=== PATIENT | female | born 1940 | race Caucasian/White ===

== ENCOUNTER → 2017-12-31 | Outpatient (CLI) | payer MEDICARE, OTHER ==
[~2017-12-31] MED LIST: ACTEMRA80 MG/4 ML IV; ALENDRONATE SOD35 MG PO; ATORVASTATIN CA20 MG PO; CALCIUM 1200 MG; CALCIUM PO; FOLIC ACID 400 MG; FOLIC ACID1 MG PO; LEVOTHYROXINE50 MCG PO; LEXAPRO10 MG PO; LORATAB; METHOTREXATE S2.5 MG PO; NITROFURANTOIN100 M1 PO; OMEPRAZOLE40 MG PO; OXYBUTYNIN CHLOR5 MG PO; PANTOPRAZOLE SO40 MG PO; SANCTURA XR60 MG PO; SERTRALINE PO; TEMAZEPAM30 MG PO; Z.0.CITALOPRAM HBR20 PO; Z.0.ENABLEX7.5 MG PO; Z.0.GEMFIBROZIL600 M PO; Z.0.NEXIUM40 MG PO; Z.0.OMEPRAZOLE20 M1 PO; Z.0.TEMAZEPAM30 MG PO; ZOLPIDEM TARTRA10 MG PO; [UNRECOGNIZED DRUG - OTHER]; [UNRECOGNIZED DRUG - OTHER] PO
--- NOTE | 2017-12-31 11:49 | Diagnostic Imaging Report ---
PROCEDURE: Frontal and lateral views of the chest. COMPARISON: None. INDICATIONS: COUGH FINDINGS: Lines/tubes: Cervical spine fixation hardware is noted. Lungs: The lungs are well inflated and clear. There is no evidence of pneumonia or pulmonary edema. Pleura: There is no pleural effusion or pneumothorax. Heart and mediastinum: The cardiomediastinal silhouette is unchanged. Bones: No acute bony abnormality. IMPRESSION: Clear lungs. No evidence of pneumonia. Dictated by: POLO GARCIA M.D. on 12/31/2017 at 11:54 Electronically approved by: POLO GARCIA M.D. on 12/31/2017 at 11:54
== END ==
LOC: MAMMO 10:33
PROVIDERS: ATTEND Family Medicine
DX: Z12.31 Encounter for screening mammogram for malignant neoplasm of breast (principal); R05 Cough; J40 Bronchitis, not specified as acute or chronic
CPT/HCPCS: 71046; 77067

== ENCOUNTER 2019-01-10 05:43 | Emergency (ER) | payer MEDICARE, OTHER ==
[~2019-01-10] VITALS: Ht 154.9 cm; Wt 78.0 kg
--- OUTSIDE RECORDS SUMMARY | 2019-01-10 05:48 | XMS REPORT | Continuity of Care Document ---
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 Phone [facility] [employer] Unavailable Unavailable Problems Problem Status Onset Date Classification Date Reported Comments Source 714.0 - RHEUMATOID ARTH Active 03/06/2015 [facility] [place] 599.0 - URIN TRACT INFE Active 10/11/2013 [facility] [place] NO ORAL CONTRAST, KUB X2, BENIGN ESSENTIAL HEMATURIA, Active 06/10/2011 [place] MICROSCOPIC HEMATURIA Active [facility] Medications No Data Provided for This Section Allergies, Adverse Reactions, Alerts No Known Medication Allergies Immunizations No Data Provided for This Section Results No Data Provided for This Section Pathology Reports No Data Provided for This Section Diagnostic Reports Report Value Date Source Shoulder 2+ Views Bilateral DX EXAM: Shoulder 2+ Views Bilateral HISTORY: 714.0 Rheumatoid Arthritis, 719.41 Pain in Joint Involving Shoulder Region COMPARISON: None IMPRESSION: Alignment is normal bilaterally. There is moderate bilateral AC joint degenerative change. No fracture. 03/06/2015 [facility] Brain w/wo contrast MRI EXAM: MRI OF THE BRAIN WITHOUT AND WITH CONTRAST DATE:Aug 08, 2014 01:52:08 PM . CLINICAL INDICATION: Malaise, fatigue, slurred speech, memory loss. COMPARISON: None available. TECHNIQUE : Multiplanar imaging of the brain was obtained both prior to and after uncomplicated IV administration of 18 cc Omniscan FINDINGS: There is no mass lesion, extra axial collection, cerebral edema or mass effect. There is no abnormality on diffusion weighted sequences. There is moderate generalized cortical and deep white matter volume loss with passive enlargement of ventricles and sulci. There are moderate periventricular and subcortical white matter signal abnormalities without mass effect. There is no cortical or deep lao signal abnormality. The cerebellar tonsillar above foramen magnum, and the sella is normal. The lateral ventricles, cortical sulci, basal cisterns are patent. Note is made of cavum septum loosened and vergae. There is no abnormal enhancement. The vascular flow-voids are unremarkable. The paranasal sinuses, orbits and mastoids are unremarkable. IMPRESSION: Moderate generalized involutional changes without acute abnormality identified 08/08/2014 [facility] Hip 2 views DX LEFT HIP SERIES CLINICAL HISTORY: Hip pain and rheumatoid arthritis. COMPARISON IMAGIN03/04/2010 radiography. FINDINGS: Two views were submitted for evaluation. Small marginal osteophytes with mild loss of joint space at the hip joints suggest mild to moderate osteoarthritis. No fracture, dislocation, or suspicious radiopaque foreign body is seen. Soft tissues are unremarkable. IMPRESSION: Findings suggestive of mild to moderate osteoarthritis. Secondary changes related to underlying inflammatory arthritis cannot be excluded. 2014 [facility] Finger AP lateral oblique Right third finger series. Clinical history: Finger pain. Comparison imagin08/29/2010 radiography. Findings: Three views were submitted for evaluation. Bones appear demineralized. DEXA scan could be considered if not already performed. No fracture, dislocation, or suspicious radiopaque foreign body is seen. Soft tissues are unremarkable. Impression: No acute abnormality. 11/02/2013 [facility] Retroperitoneal Complete US Exam: Bilateral renal ultrasound. Reason for Exam: Urinary tract infection. Microscopic hematuria. Comparison Exam: CT scan 06/18/2011 Discussion: Multiple sagittal and axial images were obtained of the kidneys. The right kidney measures 9.7 x 4.7 x 4.6 cm. It is of unremarkable echogenicity without focal masses, hydronephrosis, or shadowing renal calculi. The cortical thickness measures 1.4 cm. The left kidney measures 10.1 x 5.2 x 5.1 cm. It is of unremarkable echogenicity without focal masses, hydronephrosis, or shadowing renal calculi. The cortical thickness measures 1.0 cm. Visualized portions of the bladder are unremarkable. Both ureteral jets identified. Visualized portions of the aorta and IVC are unremarkable. The common iliac arteries are not adequately seen. Impression: 1. Unremarkable renal ultrasound. 10/19/2013 [facility] Abdomen AP view Abdomen one view, 10/19/2013. HISTORY: Urinary tract infection. Compared to prior exam dated 06/18/2011. The kidneys are obscured by bowel gas and stool. No calcifications overlying the kidneys or along the course of the ureters noted. Moderate constipation. No evidence of bowel obstruction. Advanced degenerative changes in the lower lumbar spine. The abdominal aorta is calcified. Surgical clips in the right upper quadrant 10/19/2013 [facility] Consultation Notes No Data Provided for This Section Discharge Summaries No Data Provided for This Section History and Physicals No Data Provided for This Section Vital Signs No Data Provided for This Section Encounters Location Location Details Encounter Type Encounter Number Reason For Visit Attending Provider ADM Date DC Date Status Source [facility] Outpatient [id number] NO ORAL CONTRAST, KUB X2, BENIGN ESSENTIAL HEMATURIA, NELSY RADFORD 06/18/2011 Active [facility] [place] [facility] [id number] Nelsy Radford 10/19/2013 10/20/2013 [facility] [place] [facility] [id number] Shahida Ferraro 11/02/2013 11/03/2013 [facility] [place] [facility] [id number] Anil Michaud 2014 07/07/2014 [facility] [place] [facility] [id number] Macario Bell 03/06/2015 03/07/2015 [facility] [place] Procedures No Data Provided for This Section Assessment and Plan No Data Provided for This Section Plan of Care No Data Provided for This Section Social History Social History Date Source No data available for this section 03/07/2015 [facility] [place] Family History No Data Provided for This Section Advance Directives No Data Provided for This Section Functional Status No Data Provided for This Section
--- OUTSIDE RECORDS SUMMARY | 2019-01-10 05:48 | XMS REPORT | Summary of Care ---
Author Author [facility] [place] Organization [facility] [place] Address Unknown Phone Unavailable Encounter [facility] Encntr_alias(FIN) [id number] Date(s): 03/06/15 - 03/06/15 [facility] [place] [address] [place] [address] [phone] Discharge Disposition: Home Attending Physician: Macario Bell MD Vital Signs No data available for this section Problem List No data available for this section Allergies, Adverse Reactions, Alerts No data available for this section Medications No data available for this section Results No data available for this section Immunizations No data available for this section Procedures No data available for this section Social History No data available for this section Assessment and Plan No data available for this section
--- OUTSIDE RECORDS SUMMARY | 2019-01-10 05:48 | XMS REPORT | Summary of Care ---
Author Organization Unknown Address Unknown Phone Unavailable Encounter [facility] Encntr_rosey([facility]) [id number] Date(s): 07/06/14 - 07/06/14 [facility] Outpatient Imaging - [address] [address] [place] Discharge Disposition: Home Physician Attending: Anil Michaud MD Reason for Visit 714.0 - RHEUMATOID ARTH Problem List No data available for this section Allergies, Adverse Reactions, Alerts No data available for this section Medications No data available for this section Medications Administered During Your Visit No data available for this section Immunizations No data available for this section
--- OUTSIDE RECORDS SUMMARY | 2019-01-10 05:48 | XMS REPORT | Summary of Care ---
Author Organization Unknown Address Unknown Phone Unavailable Encounter [facility]tr_rosey([facility]) [id number] Date(s): 10/19/13 - 10/19/13 [facility] Outpatient Imaging - [address] [address] [place] Discharge Disposition: Home Physician Attending: Dave Radford MD Reason for Visit 599.0 - URIN TRACT INFE Problem List No data available for this section Allergies, Adverse Reactions, Alerts No data available for this section Medications No data available for this section Medications Administered During Your Visit No data available for this section Immunizations No data available for this section
--- OUTSIDE RECORDS SUMMARY | 2019-01-10 05:48 | XMS REPORT | Summary of Care ---
Author Organization Unknown Address Unknown Phone Unavailable Encounter [facility] Encntr_rosey([facility]) [id number] Date(s): 11/02/13 - 11/02/13 [facility] Outpatient Imaging - [address] [address] [place] Discharge Disposition: Home Physician Attending: Shahiad Ferraro MD Reason for Visit 829.0 - FRACTURE NOS-CL Problem List No data available for this section Allergies, Adverse Reactions, Alerts No data available for this section Medications No data available for this section Medications Administered During Your Visit No data available for this section Immunizations No data available for this section
--- OUTSIDE RECORDS SUMMARY | 2019-01-10 05:48 | XMS REPORT ---
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 Allergies, Adverse Reactions, Alerts This patient has no known allergies or adverse reactions. Medications This patient has no known medications. Results Test Description Test Time Test Comments Text Results Atomic Results Result Comments CHEST 2 VIEWS 2017-12-31 11:54:00 [place] [address] Patient Name: IAIN SAEED MR #: [id number] : 1940 Age/Sex: 77/F Req #: [id number] Adm Physician: Ordered by: RAMIRO LAW MD Report #: [id number] [facility]Bed: Procedure: [id number] DX/CHEST 2 VIEWS Exam Date: 12/31/17 Exam Time: 1105 REPORT STATUS: Signed PROCEDURE: Frontal and lateral views of the chest. COMPARISON: None. INDICATIONS: COUGH FINDINGS: Lines/tubes: Cervical spine fixation hardware is noted. Lungs: The lungs are well inflated and clear. There is no evidence of pneumonia or pulmonary edema. Pleura: There is no pleural effusion or pneumothorax. Heart and mediastinum: The cardiomediastinal silhouette is unchanged. Bones: No acute bony abnormality. IMPRESSION: Clear lungs. No evidence of pneumonia. Dictated by: POLO GARCIA M.D. on 12/31/2017 at 11:54 Electronically approved by: POLO GARCIA M.D. on 12/31/2017 at 11:54 Dictated By: POLO GARCIA MD 1154 Transcribed By: WARREN on 12/31/17 1154 COPY TO: RAMIRO LAW MD MAMMOGRAPHY DIGITAL SCR BILAT 2017-12-31 11:18:00 [place] [address] Patient Name: IAIN SAEED MR #: [id number] : 1940 Age/Sex: 77/F Req #: [id number] Adm Physician: Ordered by: RAMIRO LAW MD Report #: [id number] Location: MAMMO Room/Bed: Procedure: [id number] MG/MAMMOGRAPHY DIGITAL SCR BILAT Exam Date: 12/31/17 Exam Time: 1045 REPORT STATUS: Signed #[id number] - MGSCRBIL #BILATERAL DIGITAL SCREENING MAMMOGRAM WITH CAD: 12/31/2017 CLINICAL: Routine screening. Comparison is made to exams dated: 07/29/2016 mammogram - [facility] and 07/20/2015 mammogram - [facility]. Current study contains 4 films. The tissue of both breasts is heterogeneously dense. This may lower the sensitivity of mammography. Current study was also evaluated with a Computer Aided Detection (CAD) system. There are benign vascular calcifications and calcifications in both breasts. No significant masses, calcifications, or other findings are seen in either breast. There has been no significant interval change. IMPRESSION: BENIGN There is no mammographic evidence of malignancy. A 1 year screening mammogram is recomme nded. The patient will be notified by letter of the results. Reza wilcox/estephania:01/01/2018 14:35:34 Vp: Roz SCHULTZ)([place]), [facility] letter sent: Compared to Prior B9 Mammogram BI-RADS: 2 Benign Dictated By: REZA MCCLAIN DO 1432 Transcribed By: ESTEPHANIA on 01/01/18 1437 COPY TO: RAMIRO LAW MD
[2019-01-10] MEDS ORDERED: FENOFIBRATE145 MG PO (06:18)
[2019-01-10 06:19] LABS: BASOPHILS # (AUTO) 0.1 (0.0-0.1); BASOPHILS % 1.1 % (0.0-1.0); EOSINOPHILS # (AUTO) 0.1 (0.0-0.4); EOSINOPHILS % 1.5 % (0.0-6.0); HEMATOCRIT 38.9 % (34.2-44.1); HEMOGLOBIN 12.8 g/dL (12.0-16.0); LYMPHOCYTES # (AUTO) 1.3 (1.0-3.2); LYMPHOCYTES % 28.4 % (18.0-39.1); MEAN CORPUSCULAR HEMOGLOBIN 32.3 pg (28-32); MEAN CORPUSCULAR HGB CONC 32.9 g/dL (31-35); MEAN CORPUSCULAR VOLUME 98.2 fL (81-99); MONOCYTES # (AUTO) 0.4 (0.2-0.8); MONOCYTES % 9.5 % (4.4-11.3); NEUTROPHILS # (AUTO) 2.7 (2.1-6.9); NEUTROPHILS % 59.1 % (38.7-80.0); PLATELET COUNT 240 x10e3/uL (140-360); RED BLOOD COUNT 3.96 x10e6/uL (3.6-5.1); RED CELL DISTRIBUTION WIDTH 13.8 % (11.7-14.4)
[2019-01-10 06:20] LABS: BILIRUBIN,URINE NEGATIVE (NEGATIVE); CLARITY,URINE CLEAR (CLEAR); COLOR,URINE YELLOW (YELLOW); KETONES,URINE NEGATIVE (NEGATIVE); LEUKOCYTE ESTERASE ,URINE NEGATIVE (NEGATIVE); NITRITE,URINE NEGATIVE (NEGATIVE); PROTEIN,URINE DIPSTICK NEGATIVE (NEGATIVE); URINE UROBILINOGEN 0.2 mg/dL (0.2 - 1)
[2019-01-10 06:41] LABS: BACTERIA,URINE FEW /HPF; EPITHELIAL CELLS,URINE FEW /LPF; RBC,URINE 0-5 /HPF (0-5); WBC,URINE (MAN) 0-5 /HPF (0-5)
[2019-01-10 06:51] LABS: ALBUMIN 3.8 g/dL (3.5-5.0); ALBUMIN/GLOBULIN RATIO 1.1 (0.8-2.0); ANION GAP 13.9 mmol/L (8-16); CALCIUM 11.2 mg/dL (8.4-10.2); CREATININE, SERUM 1.26 mg/dL (0.57-1.11); POTASSIUM 3.9 mmol/L (3.5-5.1)
--- NOTE | 2019-01-10 06:56 | NUR ---
REPORT TO FER SANTOYO
[2019-01-10] MEDS ORDERED: SODIUM CHLORIDE 0.9% 1000ML 1,000 ML IV STA (07:00)
[2019-01-10] MEDS ORDERED: SODIUM CHLORIDE 0.9% 1000ML 1,000 ML ONE (07:06)
--- NOTE | 2019-01-10 08:47 | Diagnostic Imaging Report ---
EXAM: CT Abdomen and Pelvis WITHOUT intravenous contrast INDICATION: Abdominal pain COMPARISON: None. TECHNIQUE: Abdomen and pelvis were scanned utilizing a multidetector helical scanner from the lung base to the pubic symphysis without administration of IV contrast. Coronal and sagittal reformations were obtained. IV CONTRAST: None ORAL CONTRAST: None COMPLICATIONS: None RADIATION DOSE: Total DLP: 614.3 mGy*cm Dose modulation, iterative reconstruction, and/or weight based adjustment of the mA/kV was utilized to reduce the radiation dose to as low as reasonably achievable. FINDINGS: LOWER THORAX: 5 mm pulmonary nodule at the posterior left lower lobe. Mild bibasilar dependent subsegmental atelectasis. Small posterior left diaphragmatic hernia containing fat. HEPATOBILIARY: 1.8 cm segment 2 hypodense lesion, 2.5 cm hypodense lesion adjacent to the falciform ligament, and 1.6 cm hypodense lesion in segment 6 posteriorly may represent cysts or focal fat and are incompletely characterized on this noncontrast study. Small subcentimeter hypodense area in segment 5 is also incompletely characterized. Status post cholecystectomy. SPLEEN: No splenomegaly. PANCREAS: No focal masses or ductal dilatation. ADRENALS: No adrenal nodules. KIDNEYS/URETERS: No hydronephrosis, stones, or solid mass lesions. PELVIC ORGANS/BLADDER: Unremarkable. PERITONEUM / RETROPERITONEUM: No free air or fluid. LYMPH NODES: No lymphadenopathy. VESSELS: Scattered atherosclerotic calcifications of the nonaneurysmal abdominal aorta and major branches. GI TRACT: No distention or wall thickening. No evidence of bowel obstruction. Extremely redundant sigmoid colon with stool burden throughout. BONES AND SOFT TISSUES: Moderate degenerative changes of the visualized spine. No acute fracture. No suspicious lytic or blastic lesions. IMPRESSION: Extremely redundant sigmoid colon with stool burden throughout, compatible with constipation. Otherwise, no acute findings in abdomen or pelvis. Hypodensities throughout the right and left liver are incompletely characterized on this single phase noncontrast CT for most likely represent cysts based on attenuation. Signed by: Samantha Sanford MD on 01/10/2019 8:44 AM
[2019-01-10] MEDS ORDERED: ACETAMINOPHEN 325 MG TAB PO ONE (09:00)
[2019-01-10 09:03] VITALS: BP 141/76
== END 2019-01-10 09:16 | disposition home or self-care (01) ==
LOC: ER 05:43
DX: R10.32 Left lower quadrant pain (principal); K59.00 Constipation, unspecified
CPT/HCPCS: 36415; 74176; 80053; 81001; 85025; 99284; J7030

== ENCOUNTER → 2019-01-11 | Outpatient (CLI) | payer MEDICARE, OTHER ==
[~2019-01-11] MED LIST changes: +FENOFIBRATE145 MG PO
--- NOTE | 2019-01-14 08:32 | Diagnostic Imaging Report ---
#[id number] - MGSCRBIL #BILATERAL DIGITAL SCREENING MAMMOGRAM WITH CAD: 01/11/2019 CLINICAL: Routine screening. Comparison is made to exams dated: 12/31/2017 mammogram and 07/29/2016 mammogram - [facility]. Current study contains 4 films. The tissue of both breasts is heterogeneously dense. This may lower the sensitivity of mammography. Current study was also evaluated with a Computer Aided Detection (CAD) system. Benign appearing calcifications are noted bilaterally. There are benign vascular calcifications in both breasts. No significant masses, calcifications, or other findings are seen in either breast. IMPRESSION: BENIGN There is no mammographic evidence of malignancy. A 1 year screening mammogram is recommended. The patient will be notified by letter of the results. LINSEY PATINO M.D. ct/penrad:01/13/2019 17:49:03 [place]: Roz FAY(Kristin)([place]), [facility] letter sent: Normal Exam Mammogram BI-RADS: 2 Benign
== END ==
LOC: MAMMO 12:42
PROVIDERS: ATTEND Family Medicine
DX: Z12.31 Encounter for screening mammogram for malignant neoplasm of breast (principal)
CPT/HCPCS: 77067

== ENCOUNTER → 2019-04-20 | Day surgery (SDC) | payer MEDICARE, OTHER ==
[2019-04-18 10:52] LABS: BASOPHILS % 0.6 % (0.0-1.0); EOSINOPHILS # (AUTO) 0.1 (0.0-0.4); EOSINOPHILS % 2.4 % (0.0-6.0); HEMATOCRIT 38.4 % (34.2-44.1); HEMOGLOBIN 12.4 g/dL (12.0-16.0); LYMPHOCYTES # (AUTO) 0.6 (1.0-3.2); LYMPHOCYTES % 11.9 % (18.0-39.1); MEAN CORPUSCULAR HEMOGLOBIN 32.6 pg (28-32); MEAN CORPUSCULAR HGB CONC 32.3 g/dL (31-35); MEAN CORPUSCULAR VOLUME 101.1 fL (81-99); MONOCYTES # (AUTO) 0.6 (0.2-0.8); MONOCYTES % 12.3 % (4.4-11.3); NEUTROPHILS # (AUTO) 3.6 (2.1-6.9); NEUTROPHILS % 72.6 % (38.7-80.0); PLATELET COUNT 228 x10e3/uL (140-360)
--- NOTE | 2019-04-18 12:27 | Diagnostic Imaging Report ---
EXAMINATION: CHEST 2 VIEWS INDICATION: Pre-operative COMPARISON: Chest radiograph of 12/31/2017 FINDINGS: LINES/TUBES:None LUNGS:The lungs are well-inflated. No focal consolidation or pulmonary edema. PLEURA:No pleural effusion or pneumothorax. MEDIASTINUM:The cardiomediastinal silhouette appears normal in size and shape. BONES/SOFT TISSUES:No acute osseous injury. Cervical spine fusion hardware. ABDOMEN:No free air under the diaphragm. IMPRESSION: No focal pneumonia or pulmonary edema. Signed by: Samantha Sanford MD on 04/18/2019 12:24 PM
[2019-04-18 12:31] LABS: BAND NEUTROPHILS % (MANUAL) 1 %; EOSINOPHILS % (MANUAL) 1 % (0-7); LYMPHOCYTES % (MANUAL) 15 % (19-48); MONOCYTES % (MANUAL) 10 % (3.4-9.0); NEUTROPHILS % (MANUAL) 72 % (40-74)
[2019-04-18 12:33] LABS: PLATELET ESTIMATE ADEQUATE; PLATELET MORPHOLOGY COMMENT NORMAL; RBC MORPHOLOGY COMMENT NORMAL
[2019-04-18 12:38] LABS: POIKILOCYTOSIS SLIGHT
[2019-04-18 12:39] LABS: ANISOCYTOSIS MODERATE
[~2019-04-20] MED LIST changes: +ACETAMINOPHEN 1000 MG/100 ML IV ONE; +BIOTIN2500 MCG PO; +BUPIVACAINE HCL 0.5% INJ 30 ML VIAL INJ ONE; +BUTALB-ACETAMI1 EAC2 PO; +CEFAZOLIN SOD 1 GM/NS 50ML 100 ML IV ONE; +CENTRUM SILVER1 EAC3 PO; +DEXAMETHASONE SOD PHOS INJ 4 MG/ML VIAL ONE; +FENTANYL CITRATE/PF 100MCG/2 ML INJ ONE; +LIDOCAINE HCL 1% 2 ML AMP ONE; +LIDOCAINE HCL 2% LOCAL INJ 5 ML SDV VIAL INJ ONE; +METRONIDAZOLE45 G1 TOP; +MIDAZOLAM HCL 2 MG/2 ML VIAL ONE; +PROPOFOL IV EMULSION 10 MG/ML 20 ML VIAL ONE; +SERTRALINE HCL50 MG PO; +SEVOFLURANE INHAL SOLN 250 ML PEN BTL ONE; +SYSTANE ULTRA 010 ML OP
--- NOTE | 2019-04-20 07:15 | NUR ---
SPIRITUAL CARE - Pre-Surgery Assessment: Pt in bed. Pt reported supportive attention from family and friends. Intervention: I provided pastoral presence, hospitality, and sympathetic listening. I acquainted pt with availability of acid changer while hospitalized. Outcome: Pt expressed appreciation for visit. No need for follow up indicated at this time. FRANCIS Batreslain Spiritual Care Department O: [phone] Pager: [phone] ([phone] number calling from)
[2019-04-20 09:50] VITALS: BP 105/65
--- NOTE | 2019-04-20 16:12 | Operative Report ---
DATE OF PROCEDURE: 04/20/2019 SURGEON: Cuba Skaggs MD PREOPERATIVE DIAGNOSIS: Right thumb trigger finger. POSTOPERATIVE DIAGNOSIS: Right thumb trigger finger. OPERATION AND PROCEDURE PERFORMED: The patient underwent a right thumb trigger release. SURGICAL INSTRUMENT MAKER: Maryanne Richardson. ANESTHESIA: General endotracheal intubation anesthesia. IV FLUIDS: Per the anesthesia record. BRIEF DESCRIPTION OF THE PATIENT'S OPERATIVE PROCEDURE: Ms. Gomez was taken the operating room, placed in supine position on the operating table. Following induction of general anesthesia as well as endotracheal intubation, the patient's right upper extremity was examined under anesthesia. She was found to have a normal-appearing upper extremity with the exception of evidence of arthritis in her hand. The patient's upper extremity was prepped and draped in standard surgical fashion. The case was begun by creating incision overlying the A1 shimon for the right thumb. This incision was carried through skin only. Blunt dissection was used to deepen the incision to the level of the A1 shimon. Care was taken to retract the digital nerve. Digital nerve was retracted throughout the case using Ragnell retractors. The A1 shimon was incised in line with the skin incision. The underlying flexor tendon was evaluated and found to be intact with nodular tenosynovitis. The thumb was placed through range of motion and no further catching was identified. The wound was copiously irrigated and closed in a single layer fashion. Sterile dressings were applied. The patient was awakened and taken to postanesthesia care unit in stable condition. Cuba Skaggs MD EBR/MODL /[id number]
== END | disposition home or self-care (01) ==
LOC: OR 05:37
PROVIDERS: ATTEND Specialist
DX: M65.311 Trigger thumb, right thumb (principal); Z01.810 Encounter for preprocedural cardiovascular examination; Z01.812 Encounter for preprocedural laboratory examination; Z01.811 Encounter for preprocedural respiratory examination; M06.9 Rheumatoid arthritis, unspecified; K21.9 Gastro-esophageal reflux disease without esophagitis
CPT/HCPCS: 26055; 36415; 71046; 85025; 93005; J0131; J0690; J1100; J2001 ×2; J2250; J2704; J3010

== ENCOUNTER → 2019-06-06 | Day surgery (SDC) | payer MEDICARE, OTHER ==
[2019-06-01 14:29] LABS: BASOPHILS % 0.7 % (0.0-1.0); EOSINOPHILS # (AUTO) 0.1 (0.0-0.4); EOSINOPHILS % 1.4 % (0.0-6.0); HEMATOCRIT 36.3 % (34.2-44.1); HEMOGLOBIN 11.6 g/dL (12.0-16.0); LYMPHOCYTES # (AUTO) 0.9 (1.0-3.2); LYMPHOCYTES % 14.6 % (18.0-39.1); MEAN CORPUSCULAR HEMOGLOBIN 31.4 pg (28-32); MEAN CORPUSCULAR VOLUME 98.4 fL (81-99); MONOCYTES # (AUTO) 0.3 (0.2-0.8); MONOCYTES % 4.4 % (4.4-11.3); NEUTROPHILS # (AUTO) 4.7 (2.1-6.9); NEUTROPHILS % 78.7 % (38.7-80.0); PLATELET COUNT 266 x10e3/uL (140-360); RED BLOOD COUNT 3.69 x10e6/uL (3.6-5.1); RED CELL DISTRIBUTION WIDTH 13.7 % (11.7-14.4)
[~2019-06-06] MED LIST changes: -ACETAMINOPHEN 1000 MG/100 ML IV ONE; -BUPIVACAINE HCL 0.5% INJ 30 ML VIAL INJ ONE; -CEFAZOLIN SOD 1 GM/NS 50ML 100 ML IV ONE; -DEXAMETHASONE SOD PHOS INJ 4 MG/ML VIAL ONE; -FENTANYL CITRATE/PF 100MCG/2 ML INJ ONE; +GEMFIBROZIL600 MG PO; +GLUCAGON FOR INJ 1 MG VIAL ONE; +HYOSCYAMINE 0.125 MG TAB ONE; -LIDOCAINE HCL 1% 2 ML AMP ONE; -LIDOCAINE HCL 2% LOCAL INJ 5 ML SDV VIAL INJ ONE; -MIDAZOLAM HCL 2 MG/2 ML VIAL ONE; -PROPOFOL IV EMULSION 10 MG/ML 20 ML VIAL ONE; +PROPOFOL IV EMULSION 10 MG/ML 50 ML VIAL ONE; -SEVOFLURANE INHAL SOLN 250 ML PEN BTL ONE; +[UNRECOGNIZED DRUG - OTHER] TOP
[2019-06-06 14:45] VITALS: BP 112/74
--- NOTE | 2019-06-06 16:10 | Operative Report ---
DATE OF PROCEDURE: 06/06/2019 SURGEON: Melecio Yan MD PROCEDURE: Colonoscopy with biopsies. INDICATION FOR COLONOSCOPY: Diarrhea, blood and mucus in stools. MEDICATIONS: The patient was done under MAC, please see anesthesiologist's note. PROCEDURE IN DETAIL: With the patient in the left lateral decubitus position, a flexible fiberoptic Olympus colonoscope was inserted into the rectum with ease and advanced all the way to the cecum. An attempt to intubate the ileocecal valve was unsuccessful, but the biopsy forceps was advanced into the terminal ileum and biopsies were obtained. The scope was then withdrawn back slowly and mucosa overlying the ascending and the transverse revealed some patchy mild inflammatory changes. The inflammatory changes are more prominent in the left colon and rectum, and multiple random biopsies were obtained. The scope was then retroflexed into the distal rectum and the area around the dentate line grossly appeared to be within normal limits. The scope was then straightened out and it was subsequently withdrawn after securing an adequate stool specimen that was sent for the appropriate stool studies. The patient tolerated the procedure well. IMPRESSION: 1. Colitis, primarily left-sided. Multiple biopsies obtained. 2. Proctitis, biopsies obtained. PLAN: Follow up histology. Follow up stool studies. Initiate Bentyl 10 mg 1 p.o. t.i.d. Melecio Yan MD [facility] [place] /[id number] cc: Shahida Ferraro MD
[2019-06-06 17:44] LABS: WBC,FECAL (FECAL LACTOFERRIN) POSITIVE (NEGATIVE)
[2019-06-07 10:34] LABS: C DIFFICILE TOXIN A&B AMP PROB NEGATIVE (NEGATIVE)
== END | disposition home or self-care (01) ==
LOC: OR 11:14
PROVIDERS: ATTEND Internal Medicine Gastroenterology
DX: K51.50 Left sided colitis without complications (principal); K63.5 Polyp of colon; K62.89 Other specified diseases of anus and rectum; K64.8 Other hemorrhoids; K29.60 Other gastritis without bleeding; K20.8 Other esophagitis; K21.9 Gastro-esophageal reflux disease without esophagitis; E03.9 Hypothyroidism, unspecified; M06.9 Rheumatoid arthritis, unspecified; G43.909 Migraine, unspecified, not intractable, without status migrainosus; R01.1 Cardiac murmur, unspecified; M85.80 Other specified disorders of bone density and structure, unspecified site; F32.9 Major depressive disorder, single episode, unspecified; Z88.8 Allergy status to other drugs, medicaments and biological substances; Z01.810 Encounter for preprocedural cardiovascular examination; Z01.812 Encounter for preprocedural laboratory examination; Z68.32 Body mass index [BMI] 32.0-32.9, adult; Z87.891 Personal history of nicotine dependence
CPT/HCPCS: 36415; 45380; 83630; 83993; 85025; 87045; 87177; 87328; 87493; 88305; J1610; J2704; 45378

== ENCOUNTER → 2020-01-16 | Outpatient (CLI) | payer MEDICARE, OTHER ==
[~2020-01-16] MED LIST changes: -GLUCAGON FOR INJ 1 MG VIAL ONE; -HYOSCYAMINE 0.125 MG TAB ONE; -PROPOFOL IV EMULSION 10 MG/ML 50 ML VIAL ONE
== END ==
LOC: MAMMO 09:52
PROVIDERS: ATTEND Internal Medicine
DX: Z12.31 Encounter for screening mammogram for malignant neoplasm of breast (principal)
CPT/HCPCS: 77067

== ENCOUNTER → 2021-01-15 | Outpatient (CLI) | payer MEDICARE, OTHER | LOC: MAMMO 09:42 | PROVIDERS: ATTEND Internal Medicine | DX: Z12.31 Encounter for screening mammogram for malignant neoplasm of breast (principal) | CPT/HCPCS: 77067 ==

== ENCOUNTER → 2021-05-02 | Day surgery (SDC) | payer MEDICARE, OTHER ==
[2021-05-01 11:30] LABS: BASOPHILS # (AUTO) 0.1 (0.0-0.1); BASOPHILS % 1.2 % (0.0-1.0); EOSINOPHILS # (AUTO) 0.2 (0.0-0.4); EOSINOPHILS % 3.1 % (0.0-6.0); HEMATOCRIT 39.1 % (34.2-44.1); HEMOGLOBIN 12.5 g/dL (12.0-16.0); LYMPHOCYTES % 18.8 % (18.0-39.1); MEAN CORPUSCULAR HEMOGLOBIN 31.7 pg (28-32); MEAN CORPUSCULAR VOLUME 99.2 fL (81-99); MONOCYTES # (AUTO) 0.4 (0.2-0.8); NEUTROPHILS # (AUTO) 3.5 (2.1-6.9); NEUTROPHILS % 68.7 % (38.7-80.0); PLATELET COUNT 159 x10e3/uL (140-360); RED BLOOD COUNT 3.94 x10e6/uL (3.6-5.1); RED CELL DISTRIBUTION WIDTH 14.6 % (11.7-14.4)
[~2021-05-02] MED LIST changes: +FENTANYL CITRATE/PF 100MCG/2 ML INJ ONE; +GLUCAGON FOR INJ 1 MG VIAL ONE; +LIDOCAINE HCL 2% LOCAL INJ 5 ML SDV VIAL INJ ONE; +LIPITOR10 MG PO; +MIDAZOLAM HCL 2 MG/2 ML VIAL ONE; +PROPOFOL IV EMULSION 10 MG/ML 20 ML VIAL ONE; +SOMA350 MG PO; +SUMATRIPTAN SUC50 MG PO; +VIT B12 PO
[2021-05-02 08:20] VITALS: BP 120/78
== END | disposition home or self-care (01) ==
LOC: OR 06:18
PROVIDERS: ATTEND Internal Medicine Gastroenterology
DX: Z09 Encounter for follow-up examination after completed treatment for conditions other than malignant neoplasm (principal); K31.7 Polyp of stomach and duodenum; K29.50 Unspecified chronic gastritis without bleeding; K31.89 Other diseases of stomach and duodenum; K44.9 Diaphragmatic hernia without obstruction or gangrene; K21.9 Gastro-esophageal reflux disease without esophagitis; E78.5 Hyperlipidemia, unspecified; M06.9 Rheumatoid arthritis, unspecified; R03.0 Elevated blood-pressure reading, without diagnosis of hypertension; F32.A Depression, unspecified; Z88.8 Allergy status to other drugs, medicaments and biological substances; Z01.810 Encounter for preprocedural cardiovascular examination; Z01.812 Encounter for preprocedural laboratory examination; Z20.822 Contact with and (suspected) exposure to COVID-19; Z79.899 Other long term (current) drug therapy; Z68.33 Body mass index [BMI] 33.0-33.9, adult
CPT/HCPCS: 36415; 43239; 85025; 88305; 88312; 93005; J1610; J2001; J2250; J2704; J3010; U0002; 88342

== ENCOUNTER → 2021-05-31 | Outpatient (CLI) | payer MEDICARE, OTHER ==
[~2021-05-31] MED LIST changes: -FENTANYL CITRATE/PF 100MCG/2 ML INJ ONE; -GLUCAGON FOR INJ 1 MG VIAL ONE; -LIDOCAINE HCL 2% LOCAL INJ 5 ML SDV VIAL INJ ONE; -MIDAZOLAM HCL 2 MG/2 ML VIAL ONE; -PROPOFOL IV EMULSION 10 MG/ML 20 ML VIAL ONE
== END ==
LOC: NM 08:37
PROVIDERS: ATTEND Internal Medicine Gastroenterology
DX: K92.1 Melena (principal)
CPT/HCPCS: 78278; A9512 ×2

== ENCOUNTER → 2021-07-03 | Day surgery (SDC) | payer MEDICARE, OTHER ==
[2021-07-01 09:49] LABS: BASOPHILS % 0.7 % (0.0-1.0); EOSINOPHILS # (AUTO) 0.1 (0.0-0.4); EOSINOPHILS % 1.1 % (0.0-6.0); HEMATOCRIT 41.6 % (34.2-44.1); HEMOGLOBIN 13.2 g/dL (12.0-16.0); LYMPHOCYTES # (AUTO) 1.2 (1.0-3.2); LYMPHOCYTES % 21.6 % (18.0-39.1); MEAN CORPUSCULAR HEMOGLOBIN 32.3 pg (28-32); MEAN CORPUSCULAR HGB CONC 31.7 g/dL (31-35); MEAN CORPUSCULAR VOLUME 101.7 fL (81-99); MONOCYTES # (AUTO) 0.5 (0.2-0.8); MONOCYTES % 9.6 % (4.4-11.3); NEUTROPHILS # (AUTO) 3.8 (2.1-6.9); NEUTROPHILS % 66.8 % (38.7-80.0); PLATELET COUNT 239 x10e3/uL (140-360); RED BLOOD COUNT 4.09 x10e6/uL (3.6-5.1); RED CELL DISTRIBUTION WIDTH 14.4 % (11.7-14.4)
[~2021-07-03] MED LIST changes: +GLUCAGON FOR INJ 1 MG VIAL ONE; +PROPOFOL IV EMULSION 10 MG/ML 20 ML VIAL ONE
[2021-07-03 10:20] VITALS: BP 134/71
== END | disposition home or self-care (01) ==
LOC: OR 07:48
PROVIDERS: ATTEND Internal Medicine Gastroenterology
DX: K92.1 Melena (principal); D12.2 Benign neoplasm of ascending colon; K59.00 Constipation, unspecified; K64.8 Other hemorrhoids; K56.609 Unspecified intestinal obstruction, unspecified as to partial versus complete obstruction; E03.9 Hypothyroidism, unspecified; K21.9 Gastro-esophageal reflux disease without esophagitis; F32.A Depression, unspecified; Z88.8 Allergy status to other drugs, medicaments and biological substances; Z01.812 Encounter for preprocedural laboratory examination; Z20.822 Contact with and (suspected) exposure to COVID-19; Z79.899 Other long term (current) drug therapy
CPT/HCPCS: 36415; 45380; 85025; J1610; J2704; U0002; 45378

== ENCOUNTER 2021-09-09 16:09 | Emergency (ER) | payer MEDICARE ==
[~2021-09-09] VITALS: Ht 154.9 cm; Wt 79.4 kg
[~2021-09-09 16:09] MED LIST changes: -GLUCAGON FOR INJ 1 MG VIAL ONE; -PROPOFOL IV EMULSION 10 MG/ML 20 ML VIAL ONE
[2021-09-09] MEDS ORDERED: SODIUM CHLORIDE 0.9% 1000ML 1,000 ML IV SCH (17:15)
[2021-09-09] MEDS ORDERED: METRONIDAZOLE (17:38)
[2021-09-09] MEDS ORDERED: PREDNISONE5 MG PO (17:38)
[2021-09-09] MEDS ORDERED: HYDROXYZINE HCL10 MG PO (17:38)
[2021-09-09] MEDS ORDERED: SODIUM CHLORIDE 0.9% 1000ML 1,000 ML ONE (17:43)
[2021-09-09] MEDS ORDERED: TAMIFLU75 MG PO (19:23)
[2021-09-09] MEDS ORDERED: OSELTAMIVIR PHOSPHATE 75 MG CAP PO ONE ×2 (19:30→19:32)
== END 2021-09-09 20:00 | disposition home or self-care (01) ==
LOC: FSED 16:29
DX: R50.9 Fever, unspecified (principal); B34.9 Viral infection, unspecified; R05.9 Cough, unspecified; E78.5 Hyperlipidemia, unspecified; E03.9 Hypothyroidism, unspecified; K21.9 Gastro-esophageal reflux disease without esophagitis; M06.9 Rheumatoid arthritis, unspecified; G47.00 Insomnia, unspecified; R51.9 Headache, unspecified
CPT/HCPCS: 71046; 80053; 81003; 83605; 85025; 87040; 87400; 99283; J7030; U0002

== ENCOUNTER 2021-10-07 08:49 | Emergency (ER) | payer MEDICARE ==
[~2021-10-07] VITALS: Ht 154.9 cm; Wt 77.2 kg
[~2021-10-07 08:49] MED LIST changes: +HYDROXYZINE HCL10 MG PO; +METRONIDAZOLE; +PREDNISONE5 MG PO; +TAMIFLU75 MG PO
[2021-10-07] MEDS ORDERED: ONDANSETRON HCL INJ 2MG/ML 2ML 2 MG/ML VIAL IV STA (09:28)
[2021-10-07] MEDS ORDERED: ACETAMINOPHEN 325 MG TAB PO ONE (09:30)
[2021-10-07] MEDS ORDERED: SODIUM CHLORIDE 0.9% 1000ML 1,000 ML IV ONE (09:30)
[2021-10-07] MEDS ORDERED: ACETAMINOPHEN 325 MG TAB ONE (09:39)
[2021-10-07] MEDS ORDERED: ONDANSETRON HCL INJ 2MG/ML 2ML 2 MG/ML VIAL ONE (09:39)
[2021-10-07] MEDS ORDERED: SODIUM CHLORIDE 0.9% 1000ML 1,000 ML ONE (09:40)
[2021-10-07] MEDS ORDERED: TAMIFLU6 MG/1 ML PO (09:47)
[2021-10-07] MEDS ORDERED: ONDANSETRON ODT4 MG PO (10:17)
[2021-10-07] MEDS ORDERED: LOMOTIL TABLET1 EACH PO (10:18)
== END 2021-10-07 10:29 | disposition home or self-care (01) ==
LOC: FSED 09:29
DX: E86.1 Hypovolemia (principal); J10.1 Influenza due to other identified influenza virus with other respiratory manifestations; E86.0 Dehydration; R11.2 Nausea with vomiting, unspecified; R19.7 Diarrhea, unspecified; E03.9 Hypothyroidism, unspecified; E78.5 Hyperlipidemia, unspecified; M06.9 Rheumatoid arthritis, unspecified; F32.A Depression, unspecified; Z88.8 Allergy status to other drugs, medicaments and biological substances; Z79.899 Other long term (current) drug therapy
CPT/HCPCS: 80048; 80076; 81003; 85025; 87400; 96374; 99283; J2405; J7030

== ENCOUNTER → 2022-01-20 | Outpatient (CLI) | payer MEDICARE ==
[~2022-01-20] MED LIST changes: +LOMOTIL TABLET1 EACH PO; +ONDANSETRON ODT4 MG PO; +TAMIFLU6 MG/1 ML PO
== END ==
LOC: MAMMO 14:13
PROVIDERS: ATTEND Internal Medicine
DX: Z12.31 Encounter for screening mammogram for malignant neoplasm of breast (principal)
CPT/HCPCS: 77067

== ENCOUNTER → 2024-02-02 | Outpatient (REF) | payer MEDICARE | LOC: MAMMO 09:56 | PROVIDERS: ATTEND Internal Medicine | DX: Z12.31 Encounter for screening mammogram for malignant neoplasm of breast (principal) | CPT/HCPCS: 77067 ==

== ENCOUNTER → 2024-04-29 | Day surgery (SDC) | payer MEDICARE ==
[2024-04-27 11:24] LABS: BASOPHILS % 1.1 % (0.0-1.0); EOSINOPHILS # (AUTO) 0.1 (0.0-0.4); EOSINOPHILS % 3.4 % (0.0-6.0); HEMATOCRIT 46.3 % (34.2-44.1); HEMOGLOBIN 14.7 g/dL (12.0-16.0); LYMPHOCYTES # (AUTO) 1.2 (1.0-3.2); LYMPHOCYTES % 34.5 % (18.0-39.1); MEAN CORPUSCULAR HEMOGLOBIN 33.3 pg (28-32); MEAN CORPUSCULAR HGB CONC 31.7 g/dL (31-35); MONOCYTES # (AUTO) 0.5 (0.2-0.8); MONOCYTES % 13.8 % (4.4-11.3); NEUTROPHILS # (AUTO) 1.6 (2.1-6.9); NEUTROPHILS % 47.2 % (38.7-80.0); PLATELET COUNT 159 x10e3/uL (140-360); RED BLOOD COUNT 4.41 x10e6/uL (3.6-5.1); RED CELL DISTRIBUTION WIDTH 14.1 % (11.7-14.4); WHITE BLOOD COUNT 3.48 x10e3/uL (4.8-10.8)
[2024-04-27 11:55] LABS: ANION GAP 14.1 mmol/L (8-16); CALCIUM 9.9 mg/dL (8.4-10.2); CREATININE, SERUM 0.93 mg/dL (0.57-1.11); POTASSIUM 4.1 mmol/L (3.5-5.1)
[~2024-04-29] MED LIST changes: +ACETAMINOPHEN 1000 MG/100 ML 100 ML IV ONE; +BUPIVACAINE HCL 0.5% INJ 30 ML VIAL INJ ONE; +CYMBALTA30 MG; +DEXAMETHASONE SOD PHOS INJ 4 MG/ML SDV ONE; +FENTANYL CITRATE/PF 100MCG/2 ML INJ ONE; +LIDOCAINE HCL 1% 2 ML AMP ONE; +NEOSTIGMINE 1 MG/ML 10ML VIAL ONE; +ONDANSETRON HCL INJ 2MG/ML 2ML 2 MG/ML VIAL ONE; +PROPOFOL IV EMULSION 10 MG/ML 20 ML VIAL ONE
[2024-04-29] MEDS: CEFAZOLIN SODIUM 2 GM ONE (05:42)
[2024-04-29] MEDS: LACTATED RINGER'S 1,000 ML ONE (05:43)
[2024-04-29] MEDS: HYDROCODONE/APAP 7.5MG-325MG 1 EA TAB ONE (09:03)
[2024-04-29 09:20] VITALS: BP 149/87; PULSE 67; RESP 18; O2SAT 99
== END | disposition home or self-care (01) ==
LOC: OR 05:13
PROVIDERS: ATTEND Podiatrist Foot Surgery
DX: M20.11 Hallux valgus (acquired), right foot (principal); M20.41 Other hammer toe(s) (acquired), right foot; M21.621 Bunionette of right foot; M06.9 Rheumatoid arthritis, unspecified; E78.5 Hyperlipidemia, unspecified; J44.9 Chronic obstructive pulmonary disease, unspecified; E03.9 Hypothyroidism, unspecified; K21.9 Gastro-esophageal reflux disease without esophagitis; Z88.8 Allergy status to other drugs, medicaments and biological substances; Z01.810 Encounter for preprocedural cardiovascular examination; Z01.812 Encounter for preprocedural laboratory examination; Z01.818 Encounter for other preprocedural examination; Z79.899 Other long term (current) drug therapy
CPT/HCPCS: 28110; 28285; 28292; 36415; 71046; 80048; 85025; 93005; C1713; J0131; J0690; J1100; J2003; J2405; J2704; J2710; J3010; J7121; 76000

== ENCOUNTER → 2024-06-29 | Outpatient (REF) | payer MEDICARE ==
[~2024-06-29] MED LIST changes: -ACETAMINOPHEN 1000 MG/100 ML 100 ML IV ONE; -BUPIVACAINE HCL 0.5% INJ 30 ML VIAL INJ ONE; -DEXAMETHASONE SOD PHOS INJ 4 MG/ML SDV ONE; -FENTANYL CITRATE/PF 100MCG/2 ML INJ ONE; -LIDOCAINE HCL 1% 2 ML AMP ONE; -NEOSTIGMINE 1 MG/ML 10ML VIAL ONE; -ONDANSETRON HCL INJ 2MG/ML 2ML 2 MG/ML VIAL ONE; -PROPOFOL IV EMULSION 10 MG/ML 20 ML VIAL ONE
== END ==
LOC: MAMMO 09:05
PROVIDERS: ATTEND Internal Medicine
DX: N63.20 Unspecified lump in the left breast, unspecified quadrant (principal)

== ENCOUNTER → 2024-09-23 | Outpatient (REF) | payer MEDICARE | LOC: MRI 13:38 | PROVIDERS: ATTEND Internal Medicine Rheumatology | DX: M06.09 Rheumatoid arthritis without rheumatoid factor, multiple sites (principal); S66.911A Strain of unspecified muscle, fascia and tendon at wrist and hand level, right hand, initial encounter ==